=== PATIENT | female | born 1955 | race Caucasian/White ===

== ENCOUNTER → 2017-07-03 | Day surgery (SDC) | payer OTHER ==
[~2017-07-03] VITALS: Ht 165.1 cm; Wt 77.1 kg
[~2017-07-03] MED LIST: 0.9% Sodium Chloride 1,000 ML IV SCH; AMPH20CA5 PO; ATEN50TA PO; CITA20TA11 PO; HYDR-4003 PO; LEVO100T97 PO; LEVO88TA3 PO; Sodium Chloride LOK Flush 10 mL Syringe IV PRN; fentaNYL-PF 50 mCg/mL 2 mL Inj IVPUSH PRN
[2017-07-03 11:35] VITALS: BP 121/75; PULSE 89; RESP 12; O2SAT 96
--- NOTE | 2017-07-03 12:08 | PCM.ENDCOL ---
Colonoscopy Date of Service: Jul 03, 2017 Physician Haider Ma MD Pre Procedure Diagnosis: History of polyps Post Procedure Dx & Findings: Polyp hemorrhoids Procedure Colonoscopy PROCEDURE IN DETAIL: Prep adequate Withdrawal time 10 minutes After unremarkable rectal examination the Olympus video colonoscope was inserted patient's anal canal and was advanced to cecum. Landmarks were identified including the ileocecal valve and appendiceal orifice. Scope was withdrawn systematically. Visualized colonic mucosa showed healthy shiny mucosa with normal healthy-appearing vasculature. In the rectum there was a 1 mm polyp which was removed completely using cold forceps. In the rectum retroflexion was done which showed hemorrhoids. Anal canal was inspected carefully on the way out and hemorrhoids noted. Impression History of polyp Polyp times 1 status post complete removal Hemorrhoids Recommendation Repeat colonoscopy 5 years Presedation Assessment Risks and Benefits Informed consent was obtained from the patient after all risks and benefits including but not limited to drug reaction, infection, pain, bleeding, perforation, as well as alternatives were discussed. Patient monitoring Continuous pulse oximetry, cardiac monitoring, blood pressure monitoring, IV access, and oxygen at 2L per nasal cannula. Periprocedural Fentanyl: Fentanyl 150mcg Incrementally Midazolam: Midazolam 7mg Incrementally Complications There were no periprocedural complications identified. Post Procedure Plan Post Procedure Recommendations 1. Restrict activities today. 2. Resume normal activities in the morning. 3. Resume medications. 4. Patient informed of normal post procedure side effects as bloating, drowsiness, blood streaking in the stool. 5. average risk CRCS. If colon polyps come back as: -Hyperplastic- can repeat colonoscopy in 10 years -Tubular adenoma- repeat colonoscopy in 5 years -Tubulovillous/villous adenoma- repeat colonoscopy in 3 years -If any dysplasia- return to clinic as soon as possible 6. Please don't hesitate to call me with any questions. Haider Ma MD Jul 03, 2017 12:08
[2017-07-03 12:13] VITALS: BP 102/63; PULSE 72; RESP 16; O2SAT 95
[2017-07-03 12:23] VITALS: BP 100/73; PULSE 75; RESP 14; O2SAT 94
[2017-07-03 12:24] VITALS: BP 101/66; PULSE 71; RESP 14; O2SAT 94
--- NOTE | 2017-07-05 12:13 | PATH ---
SURGICAL PATHOLOGY Attending Physician:Haider Ma M.D. CASE STATUS: Signed Out PATIENT NAME: DONOVAN GRIMALDO PID: [id number] : 1955 DATE COLLECTED:07/03/2017 20:07 SPECIMEN: Rectum, Biopsy CLINICAL HISTORY: 1). RECTAL POLYP FINAL DIAGNOSIS: 1.RECTAL POLYP, BIOPSY: HYPERPLASTIC POLYP. ICD10 K62.1 GROSS DESCRIPTION: The specimen is received in one formalin filled container labeled with the patient's name, sublabeled "rectal polyp" and consists of a 0.2 x 0.2 x 0.2 CM portion of tissue which is entirely submitted in one cassette. 07/03/2017DC MICRO DESCRIPTION: See diagnosis. ICD-9 CODES: CPT CODES: 1: 31545 Electronically Signed Out Bob Arrington MD, PhD [facility] [address] [place] [address], [place] [address] Technical component performed at [facility], [address] [place] [address] Ave[address], [place], [address]
== END | disposition home or self-care (01) ==
LOC: END 00:26
PROVIDERS: ATTEND Internal Medicine
DX: Z12.11 Encounter for screening for malignant neoplasm of colon (principal); K62.1 Rectal polyp; K64.9 Unspecified hemorrhoids; I10 Essential (primary) hypertension; E03.9 Hypothyroidism, unspecified; F98.8 Other specified behavioral and emotional disorders with onset usually occurring in childhood and adolescence; G25.81 Restless legs syndrome; Z87.891 Personal history of nicotine dependence; Z86.69 Personal history of other diseases of the nervous system and sense organs
CPT/HCPCS: 45380; 99153; G0500; J2250; J3010; J7030